=== PATIENT | male | born 1965 | race Caucasian/White ===

== ENCOUNTER 2018-02-25 08:35 | Day surgery (SDC) | payer BC ==
[~2018-02-25 08:35] MED LIST: DEXAMETHASONE SOD PHOS 20 MG/5 ML VIAL.; KETOROLAC 30 MG/ML INJ FOR OR. INJ; ONDANSETRON PF 4 MG/2 ML VIAL.; PROPOFOL 20 ML IV; SEVOFLURANE 31 TO 60 MINUTES. IH; fentaNYL PF VIAL 100 MCG/2 ML VIAL
[2018-02-25] MEDS: IV RINGERS,LACTATED 1000ML 1,000 ML IV (09:13)
[2018-02-25] MEDS ORDERED: MIDAZOLAM HCL/PF 2 MG/2 ML VIAL. IV (09:15)
[2018-02-25] MEDS ORDERED: fentaNYL PF VIAL 100 MCG/2 ML VIAL IV (09:15)
[2018-02-25] MEDS ORDERED: LIDOCAINE 1% PF 2 ML VIAL. ID (09:15)
[2018-02-25] MEDS: BUPIVACAINE-EPI 0.5%-1:200000 50 ML VIAL. INJ (10:19)
[2018-02-25] MEDS: fentaNYL PF VIAL 100 MCG/2 ML VIAL IV ×2 (11:52→12:15)
[2018-02-25] MEDS ORDERED: ceFAZolin 2GM PREMIX 2 GM/50 ML BAG IV (12:00)
[2018-02-25] MEDS: oxyCODONE/APAP 5/325 1 TAB TABLET PO (12:33)
== END 2018-02-25 12:58 | disposition home or self-care (01) ==
LOC: SURG 08:35
DX: K40.90 Unilateral inguinal hernia, without obstruction or gangrene, not specified as recurrent (principal); Z79.899 Other long term (current) drug therapy; E78.00 Pure hypercholesterolemia, unspecified; F17.210 Nicotine dependence, cigarettes, uncomplicated; Z72.89 Other problems related to lifestyle
CPT/HCPCS: 49505; A7015; C1781; J0690; J1100; J1885; J2405; J2704; J3010